=== PATIENT | female | born 1995 | race Caucasian/White ===

== ENCOUNTER 2024-10-26 10:01 | Inpatient (IN) ==
[2024-10-26] MEDS ORDERED: Lidocaine 1% VIAL 10 MG/ML 30 ML VIAL INJ PRN (10:46)
[2024-10-26 11:37] LABS: ABS Basophils 0.1 10^3/uL (0.0-0.1); ABS Eosinophils 0.1 10^3/uL (0.0-0.5); ABS Lymphocytes 1.7 10^3/uL (1.0-4.8); ABS Monocytes 0.6 10^3/uL (0.0-0.9); ABS Neutrophils 6.6 10^3/uL (1.5-7.6); ABS Nucleated RBC 0.01 10^3/ul; Hematocrit 39.5 % (35-45); Hemoglobin 13.9 g/dL (11.5-14.3); Lymphocyte % 18.3 %; Mean Corpuscular Hemoglobin 32.7 pg (27-33); Mean Corpuscular Hgb Conc 35.2 g/dL (31-36); Mean Corpuscular Volume 92.9 fL (80-97); Mean Platelet Volume 8.8 fL (7.5-11.2); Nucleated Red Blood Cells % 0.1 %/100WBC (0.0-0.8); Platelet Count 256 10^3/uL (150-450); Red Blood Count 4.25 10^6/uL (3.63-4.92); White Blood Count 9.1 10^3/uL (3.8-11.8)
[2024-10-26 12:00] LABS: Albumin 3.4 g/dL (3.5-5.7); Albumin/Globulin Ratio 1.1 (1-3); Calcium 9.2 mg/dL (8.6-10.3); Creatinine, Serum 0.65 mg/dL (0.51-0.95); Potassium 4.3 mmol/L (3.5-5.0); Total Bilirubin 0.3 mg/dL (0.2-1.0); Total Protein 6.4 g/dL (6.4-8.9); eGFR CKD-EPI 122.2 (>60)
[2024-10-26 12:02] LABS: Urine Creatinine Concentration 207.64 mg/dL (20.00-320.00); Urine TP Creat Ratio 0.13 mg/mg
[2024-10-26 12:04] LABS: Urine Benzodiazepine Screen None Detected (None Detect); Urine Cannabinoids Screen None Detected (None Detect); Urine Opiates Screen None Detected (None Detect)
[2024-10-26] MEDS: Lactated Ringers 1000 ml BAG 1,000 ML IV SCH (12:30)
[2024-10-26] MEDS: Oxytocin in NS 30,000 MILLI.UNIT/500 ML BAG IV SCH (12:42)
[2024-10-26] MEDS: Penicillin G Potassium IV 5,000,000 UNITS in NS 0.9% 100 ml BAG 100 ML IVPB ONE (12:44)
[2024-10-26] MEDS: Penicillin G Potassium IV 3,000,000 UNITS in NS 0.9% 100 ml BAG 100 ML IVPB SCH (17:09)
[2024-10-26] MEDS ORDERED: Varicella Virus Vaccine Live 0.5 ML VIAL SUBCUT ONE (22:48)
[2024-10-26] MEDS ORDERED: Glycerin ADULT 2.4 gm SUPP PR PRN (22:48)
[2024-10-27] MEDS: Dibucaine 1% OINT 28.35 GM TUBE PR PRN (00:23)
[2024-10-27] MEDS: Witch Hazel PAD JAR TOPICAL PRN (00:23)
[2024-10-27] MEDS: Oxytocin in NS 30,000 MILLI.UNIT/500 ML BAG IV SCH (01:10)
[2024-10-27 06:36] LABS: ABS Basophils 0.1 10^3/uL (0.0-0.1); ABS Lymphocytes 2.1 10^3/uL (1.0-4.8); ABS Monocytes 1.3 10^3/uL (0.0-0.9); ABS Neutrophils 14.1 10^3/uL (1.5-7.6); ABS Nucleated RBC 0.01 10^3/ul; Hematocrit 32.6 % (35-45); Hemoglobin 11.4 g/dL (11.5-14.3); Lymphocyte % 11.9 %; Mean Corpuscular Hemoglobin 32.6 pg (27-33); Mean Corpuscular Hgb Conc 34.8 g/dL (31-36); Mean Corpuscular Volume 93.6 fL (80-97); Mean Platelet Volume 8.4 fL (7.5-11.2); Platelet Count 214 10^3/uL (150-450); Red Blood Count 3.49 10^6/uL (3.63-4.92); White Blood Count 17.6 10^3/uL (3.8-11.8)
[2024-10-28] MEDS: Varicella Virus Vaccine Live 0.5 ML VIAL SUBCUT ONE (07:27)
[2024-10-29] MEDS: miSOPROStol 100 mcg TAB VAGINAL ONE (03:40)
[2024-10-29] MEDS: Lactated Ringers 1000 ml BAG 1,000 ML IV ONE (03:40)
[2024-10-29] MEDS: Buffered Lidocaine 1% SYRIN 1 ml INTRADERM ONE (03:40)
[2024-10-29 08:17] VITALS: BP 134/88
== END 2024-10-29 12:17 | disposition home or self-care (01) | DRG 560 ==
LOC: MCHOBOUT 10:01 → MCHOB 11:04
PROVIDERS: ADMIT Midwife; ATTEND Midwife